=== PATIENT | male | born 1945 | race Two or more races ===

== ENCOUNTER 2019-08-20 05:10 | Day surgery (SDC) | payer OTHER ==
[2019-08-01 13:51] VITALS: BMI 27.9
[2019-08-20] MEDS ORDERED: FLU VACCINE QUAD 60 MCG/0.5 ML (MDV 19-20) IM ONE ×2 (07:04)
[2019-08-20] MEDS ORDERED: methylPREDNISolone ACET (DEPO) 40 MG/1 ML VIAL ONE (07:16)
[2019-08-20] MEDS ORDERED: BACITRACIN 15 GM TUBE TOPICAL OINTMENT ONE (07:17)
[2019-08-20] MEDS ORDERED: THROMBIN (BOVINE) 5,000 UNIT VIAL TP ONE ×3 (07:18→09:14)
[2019-08-20] MEDS ORDERED: MIDAZOLAM HCL 2 MG/2 ML SINGLE DOSE VIAL ONE (08:13)
[2019-08-20] MEDS ORDERED: PROPOFOL 20 ML ONE (08:16)
[2019-08-20] MEDS ORDERED: fentaNYL CITRATE 250 MCG/5 ML VIAL ONE (08:16)
[2019-08-20] MEDS ORDERED: ROCURONIUM BROMIDE 50 MG/5 ML SYRINGE ONE ×2 (08:16→08:53)
[2019-08-20] MEDS ORDERED: ceFAZolin SODIUM 1 GM VIAL IVPB ONE (08:30)
[2019-08-20] MEDS ORDERED: ePHEDrine SULFATE 50 MG/1 ML AMPULE ONE (08:41)
[2019-08-20] MEDS ORDERED: EPHEDRINE SULFATE/0.9% NACL/PF 50 MG/10 ML SYRINGE NR ONE (08:41)
[2019-08-20] MEDS ORDERED: BACITRACIN 50,000 UNITS VIAL TP ONE (09:07)
[2019-08-20] MEDS ORDERED: BUPIVACAINE HCL/PF 0.5% (5 MG/ML) 30 ML VIAL IJ ONE (09:44)
[2019-08-20] MEDS ORDERED: oxyCODONE HCL 5 MG TABLET PO PRN (10:06)
[2019-08-20] MEDS ORDERED: ONDANSETRON 4 MG/2 ML VIAL IVPUSH PRN ×2 (10:06→10:49)
--- NOTE | 2019-08-20 10:06 | OP ---
Operative Note - Note: Operative Date: 08/20/19 Pre-Operative Diagnosis: R L3-4 extruded HNP, stenosis, radiculopathy Operation: Partial R L3 and L4 laminectomies, microdiscectomy, foramenotomy, autologous bone graft harvest and postero-lateral bone fusion R L3-4 Findings: R L3-4 extruded disc; L3-4 spondylolisthesis Implants: none Post-Operative Diagnosis: Same as Pre-op Surgeon: Abbe Austin Assembler: Jt Baker Anesthesiologist/HEART COORDINATOR: Nela Erickson MD Anesthesia: General Specimens Removed: R L3-4 extruded HNP Estimated Blood Loss (mls): 25 Operative Report Dictated: Yes
[2019-08-20] MEDS ORDERED: GLYCOPYRROLATE 0.2 MG/1 ML VIAL ONE (10:09)
[2019-08-20] MEDS ORDERED: NEOSTIGMINE METHYLSULFATE 0.5 MG/1 ML - 10 ML MDV ONE (10:09)
[2019-08-20] MEDS ORDERED: DEXAMETHASONE SOD PHOSPHATE 4 MG/1 ML VIAL ONE (10:09)
[2019-08-20] MEDS ORDERED: LIDOCAINE HCL/PF 2% SDV 5ML VIAL ONE (10:09)
--- NOTE | 2019-08-20 10:52 | SURG ---
Surgery [employer] Note [employer]: Jt Baker PA-C Date of Service: 08/20/19 Diagnosis: R L3-4 extruded HNP, stenosis, radiculopathy Procedure: Partial R L3 and L4 laminectomies, microdiscectomy, foramenotomy, autologous bone graft harvest and postero-lateral bone fusion R L3-4 I was present for the entirety of the operative procedure. For further detail, please refer to operative report. Visit type - Case Type Case Type: Scheduled - New patient This patient is new to me today: Yes Date on this admission: 08/20/19
--- NOTE | 2019-08-20 11:00 | PN ---
Progress Note (short form) - Note Progress Note: NEUROSURGERY In PACU Minimal incisional pain AF, VSS; O2 sat 97% Resting comfortably CV- RR; Lungs- CTA B; Abd-benign; Ext- no sign of DVT CN-intact; Motor- 4+-5 B LE IP/quad/TA/gastroc; Sensation- intact LT Dressing intact Stable neurologically Pain meds Floor care PT in AM Adv diet as tolerated Findings, pt condition and postop care d/w family
[2019-08-20] MEDS: diazePAM 5 MG TABLET PO SCH ×3 (15:00→21:24)
[2019-08-20] MEDS ORDERED: diazePAM 5 MG TABLET ONE (16:09)
[2019-08-20] MEDS: DOCUSATE SODIUM 100 MG CAPSULE (FP) PO SCH ×2 (18:21→21:24)
[2019-08-20] MEDS: D5-1/2NS+20 MEQ KCL - 20 MEQ/1,000 ML INFUS.BAG IV SCH (18:21)
[2019-08-20] MEDS: LACTATED RINGERS SOLUTION 1,000 ML IV SCH (18:21)
[2019-08-20] MEDS ORDERED: ceFAZolin SODIUM 1 GM VIAL ONE (18:45)
[2019-08-20] MEDS ORDERED: DEXTROSE 5%-WATER - 50 ML IVPB ONE (18:45)
[2019-08-20] MEDS: CEFAZOLIN 1 GM in DEXTROSE 5%-WATER - 50 ML IVPB SCH (18:52)
[2019-08-21] MEDS ORDERED: DEXTROSE 5%-WATER - 50 ML IVPB ONE (00:34)
[2019-08-21] MEDS ORDERED: ceFAZolin SODIUM 1 GM VIAL ONE (00:34)
[2019-08-21] MEDS: CEFAZOLIN 1 GM in DEXTROSE 5%-WATER - 50 ML IVPB SCH (01:14)
[2019-08-21] MEDS: diazePAM 5 MG TABLET PO SCH ×2 (05:46→14:25)
[2019-08-21] MEDS: DOCUSATE SODIUM 100 MG CAPSULE (FP) PO SCH ×2 (05:46→14:25)
--- NOTE | 2019-08-21 09:40 | OP ---
DATE OF OPERATION: 08/20/2019 PREOPERATIVE DIAGNOSES: 1. Right L3-4 extruded disk herniation with downwardly migrating disk fragment with secondary spinal stenosis. 2. L3-4 retrolisthesis. 3. Hypertension/coronary artery disease. POSTOPERATIVE DIAGNOSES: 1. Right L3-4 extruded disk herniation with downwardly migrating disk fragment with secondary spinal stenosis. 2. L3-4 retrolisthesis. 3. Hypertension/coronary artery disease. ATTENDING SURGEON: Abbe Austin MD [employer]PL[employer] ATTENDANT: VIVI Raymond ANESTHESIA: General endotracheal. ANESTHESIOLOGIST: ODILON Leggett ESTIMATED BLOOD LOSS: 25 mL. PROCEDURE: 1. Partial right L3 and L4 laminectomy including medial facetectomy and foraminotomy for decompression of the thecal sac and the right L3 and L4 nerve roots including microdiskectomy (09681, [id number]). 2. Microsurgical dissection with operating microscope and microsurgical technique (77377). 3. [place] of autologous laminar bone (28306). 4. Posterolateral fusion, L3-4, with autologous bone graft (42994). FINDINGS: 1. L3-4 retrolisthesis on the intraoperative x-rays. 2. Extruded disk herniation, right L3-4, with epidural fibrosis. INDICATION: Patient is a 74-year-old male with intractable lower back pain and right lower extremity radiculopathy. MRI showed a right L3-4 extruded disk herniation with thecal sac and nerve root impingement. Because of the intractable symptoms and failure of conservative treatment he was consented for a right-sided L3-4 decompression and possible bone graft. Risks of the procedure include but are not limited to bleeding, infection, dural tear with CSF leak, neurological injury, increased thromboembolic risk and other risks of general anesthesia. The patient understands the indication for the procedure, the procedure in detail, risks and benefits and alternatives for the treatment of his lumbar condition and wished to proceed with surgery. No guarantee was given for a favorable outcome. PROCEDURE IN DETAIL: After the patient was taken to the operating room he was placed in the supine position. After general anesthesia was induced and appropriate lines were placed, he was turned into the prone position on a Harshad frame. All pressure points were checked and padded. Lumbar region cleaned with alcohol and prepped with Betadine. Localizing x-ray was obtained with spinal needle in the intraspinal space at L3-4. After position was verified the patient was sterilely prepped and draped. A 1-1/2-inch incision was opened in the midline over the L3-4. Subperiosteal dissection was carried out with a periosteal elevator and monopolar electrocautery. A self-retaining retractor was inserted. Another localizing x-ray was then obtained with a probe in the L3-4 interlaminar space. After position was verified partial laminectomy, right L3 to side of L3 and L4 was carried out with a high-speed pneumatic drill, angled curet an Kerrison rongeur. A somewhat thickened ligamentum flavum was encountered and was dissected free with an angled curet and resected with a Kerrison rongeur. There was moderate lateral recess stenosis which was taken down with a high-speed pneumatic drill and Kerrison rongeur as well. The thecal sac was noted as well as right L4 nerve root and the L3 nerve roots. The disk bulge was noted at the L3-4 level and a localizing x-ray did demonstrate a retrolisthesis at L3-4. There was no disk fragment above the nerve root shoulder and then attention turned to the axilla where the variable small pieces of disk fragment were freed up with a blunt nerve hook and dental tool. There was no one large disk fragment, however. A moderate degree of epidural fibrosis was noted and hemostasis was obtained with bipolar electrocautery. The disk fragments were bulb suctioned and then part of it was sent for pathological analysis. The decompression was completed towards the neural foramen on the right side at L3-4. The spinal canal was also decompressed. The wound was irrigated with antibiotic irrigation. A Valsalva maneuver was performed and there was no CSF leak. The proximal transverse process of L3 and L4 was decorticated with a high-speed pneumatic drill and packed with autologous morcellized bone graft which was harvested during the laminectomy process on the right side. Ten mL of 0.25% Marcaine were injected in the paraspinous muscle on the right side only. Another round of irrigation was given and 2 layers of Surgicel were laid in the epidural space at the L3-4 level. Dorsal lumbar fascia was closed with 0 Vicryl suture. Subcutaneous fascia was closed with 3-0 Vicryl suture. Skin was closed with 4-0 Vicryl running subcuticular suture. Steri-Strips and a sterile occlusive dressing were applied. The patient tolerated the procedure well and was turned back supine and extubated. He was moving bilateral upper and lower extremities in the recovery room. All needle and lap counts were correct. The patient received 1 dose of 2 g of Ancef prior to the incision. OR timeout procedure was followed. The patient's family was updated as to the patient's postoperative condition as well as intraoperative findings. Blaise [id number] MTDD
[2019-08-21] MEDS ORDERED: metoPROLOL SUCCINATE 25 MG TAB.SR.24H (FP) PO SCH (10:00)
[2019-08-21] MEDS ORDERED: amLODIPine BESYLATE 5 MG TABLET (FP) PO SCH (10:00)
[2019-08-21] MEDS ORDERED: LOSARTAN POTASSIUM 50 MG TABLET (FP) PO SCH (10:00)
[2019-08-21] MEDS ORDERED: PANTOPRAZOLE 40 MG TABLET PO SCH (10:00)
[2019-08-21] MEDS ORDERED: FENOFIBRIC ACID 135 MG CAP PO SCH (10:00)
[2019-08-21 12:51] VITALS: BP 141/70; PULSE 97; TEMP 97.9
--- NOTE | 2019-08-21 13:29 | PN ---
Progress Note (short form) - Note Progress Note: Anesthesia postop note 74 y/o M s/p GA for lumbar laminectomy POD#1, vss, aaox3, no complaints. No anesthesia complications.
[2019-08-21] MEDS: LACTATED RINGERS SOLUTION 1,000 ML IV SCH (13:47)
[2019-08-21] MEDS: D5-1/2NS+20 MEQ KCL - 20 MEQ/1,000 ML INFUS.BAG IV SCH (13:47)
--- NOTE | 2019-08-21 13:57 | PN ---
Progress Note (short form) - Note Progress Note: NEUROSURGERY On 8W Incisional pain Minimal R sciatica at bedside Tmax 98.3, AF, VSS CV- RR; Lungs- CTA B; Abd-benign; Ext- no sign of DVT CN-intact; Motor- 5 B LE IP/quad/TA/gastroc except R IP 4+; Sensation- intact LT Dressing with old drainage- dry right now Stable neurologically Pain meds PT input noted Adv diet as tolerated Findings and postop care d/w family Instructions given
--- NOTE | 2019-08-21 16:31 | PATH ---
Surgical Pathology Report Patient Name: VINCENZO CATALAN [facility]. Rec. #: [id number] /Age/Gender: 1945 (Age: 74) / M Account: <[id number]> Location: U Taken: 08/20/2019 Received: 08/20/2019 Reported: 08/21/2019 Physicians: Abbe Austin M.D. Specimen(s) Received RIGHT L3-4 Clinical History Intervertebral disc disorder with radiculopathy Final Diagnosis DISC, L3-4, RIGHT, LUMBAR LAMINECTOMY, DISCECTOMY: BENIGN INTERVERTEBRAL DISC TISSUE. Electronically Signed Enedina Medrano M.D. Gross Description Received in formalin labeled "right L3-4 disc," is a 1.4 x 0.7 x 0.2 cm aggregate of hanson fragments of fibrocartilaginous tissue. The specimen is entirely submitted in one cassette. DL/08/20/2019 saudi/08/20/2019
[2019-08-21] MEDS ORDERED: ATORVASTATIN CA 10 MG TABLET (FP) PO SCH (22:00)
== END 2019-08-21 15:15 | disposition home health service (06) ==
LOC: JSAMEDAYSX 05:10 → UNDOADMIN 05:10 → JASUSAT 05:10 → EDSTATUS 08:00 → J8W 17:53 → JASUSAT 08-21 15:15
PROVIDERS: ATTEND Neurological Surgery
PROC: 01NB0ZZ Release Lumbar Nerve, Open Approach (ICD-10-PCS; principal; 2019-08-20 08:00)
DX: M51.16 Intervertebral disc disorders with radiculopathy, lumbar region (principal); M48.061 Spinal stenosis, lumbar region without neurogenic claudication
CPT/HCPCS: 72100-TC-FY; 86850; 86900; 86901; 86922; 94010; 94760; 97116-GP; 97161-GP

== ENCOUNTER 2020-09-24 04:30 | Day surgery (SDC) | payer OTHER ==
[2020-09-21 15:15] VITALS: BMI 29.5
[2020-09-24] MEDS ORDERED: LIDOCAINE HCL 1% PRESERVATIVE FREE - 30ML VIAL PNB ONE (09:58)
[2020-09-24] MEDS ORDERED: IOHEXOL 180 MG/1 ML ML IJ ONE (09:58)
[2020-09-24 10:46] VITALS: BP 170/75; PULSE 72; TEMP 98.7
== END 2020-09-24 10:40 | disposition home or self-care (01) ==
LOC: JASU-SURG 04:30
PROVIDERS: ATTEND Pain Medicine Pain Medicine
PROC: 3E0R33Z Introduction of Anti-inflammatory into Spinal Canal, Percutaneous Approach (ICD-10-PCS; 2020-09-24)
PROC: B01BYZZ Fluoroscopy of Spinal Cord using Other Contrast (ICD-10-PCS; 2020-09-24)
PROC: 3E0R3BZ Introduction of Anesthetic Agent into Spinal Canal, Percutaneous Approach (ICD-10-PCS; principal; 2020-09-24 09:30)
DX: M54.16 Radiculopathy, lumbar region (principal)
CPT/HCPCS: 76000-TC-FY

== ENCOUNTER 2020-11-05 04:27 | Day surgery (SDC) | payer OTHER ==
[2020-11-04 17:34] VITALS: BMI 28.7
[2020-11-05] MEDS ORDERED: DEXAMETHASONE SOD PHOSPHATE/PF 10 MG/ML SDV ONE (07:23)
[2020-11-05] MEDS ORDERED: LIDOCAINE HCL/PF 1% SDV 5ML VIAL ONE (07:27)
[2020-11-05 11:36] VITALS: BP 143/70; PULSE 64; TEMP 98.2
== END 2020-11-05 11:30 | disposition home or self-care (01) ==
LOC: JASU-SURG 04:27
PROVIDERS: ATTEND Pain Medicine Pain Medicine
PROC: 3E0R3BZ Introduction of Anesthetic Agent into Spinal Canal, Percutaneous Approach (ICD-10-PCS; 2020-11-05)
PROC: B01BYZZ Fluoroscopy of Spinal Cord using Other Contrast (ICD-10-PCS; 2020-11-05)
PROC: 3E0R33Z Introduction of Anti-inflammatory into Spinal Canal, Percutaneous Approach (ICD-10-PCS; principal; 2020-11-05 10:48)
DX: M54.16 Radiculopathy, lumbar region (principal); M48.061 Spinal stenosis, lumbar region without neurogenic claudication
CPT/HCPCS: 76000-TC-FY

== ENCOUNTER 2020-12-03 04:46 | Day surgery (SDC) | payer OTHER ==
[2020-11-30 09:22] VITALS: BMI 30.4
[2020-12-03] MEDS ORDERED: LIDOCAINE HCL/PF 1% SDV 5ML VIAL ONE (07:17)
[2020-12-03] MEDS ORDERED: BUPIVACAINE HCL/PF 0.75% 10 ML VIAL ONE (07:18)
[2020-12-03] MEDS ORDERED: BUPIVACAINE HCL/PF 0.75% 10 ML VIAL NR ONE ×2 (08:53)
[2020-12-03] MEDS ORDERED: LIDOCAINE HCL 1% PRESERVATIVE FREE - 30ML VIAL IJ ONE ×2 (08:53)
[2020-12-03 09:25] VITALS: PULSE 66
[2020-12-03 09:29] VITALS: BP 152/70; TEMP 97.8
== END 2020-12-03 09:25 | disposition home or self-care (01) ==
LOC: JASU-SURG 04:46
PROVIDERS: ATTEND Pain Medicine Pain Medicine
PROC: BR16YZZ Fluoroscopy of Lumbar Facet Joint(s) using Other Contrast (ICD-10-PCS; 2020-12-03)
PROC: 3E0T3BZ Introduction of Anesthetic Agent into Peripheral Nerves and Plexi, Percutaneous Approach (ICD-10-PCS; principal; 2020-12-03 08:30)
DX: M47.816 Spondylosis without myelopathy or radiculopathy, lumbar region (principal)
CPT/HCPCS: 76000-TC-FY

== ENCOUNTER 2020-12-23 04:56 | Day surgery (SDC) | payer OTHER ==
[2020-12-22 14:45] VITALS: BMI 27.9
[2020-12-23] MEDS ORDERED: LIDOCAINE HCL/PF 1% SDV 5ML VIAL ONE (07:08)
[2020-12-23] MEDS ORDERED: BUPIVACAINE HCL/PF 0.75% 10 ML VIAL ONE (07:09)
[2020-12-23] MEDS ORDERED: IOHEXOL 180 MG/1 ML ML IJ ONE (08:27)
[2020-12-23] MEDS ORDERED: LIDOCAINE HCL 1% PRESERVATIVE FREE - 30ML VIAL IJ ONE (08:28)
[2020-12-23] MEDS ORDERED: BUPIVACAINE HCL/PF 0.75% 10 ML VIAL NR ONE (08:29)
[2020-12-23] MEDS ORDERED: BUPIVACAINE 0.75% IN DEXTROSE/PF 2ML AMPULE NR ONE (08:29)
[2020-12-23 09:55] VITALS: BP 170/80; PULSE 67; TEMP 97.3
== END 2020-12-23 09:25 | disposition home or self-care (01) ==
LOC: JASU-SURG 04:56
PROVIDERS: ATTEND Pain Medicine Pain Medicine
PROC: BR16YZZ Fluoroscopy of Lumbar Facet Joint(s) using Other Contrast (ICD-10-PCS; 2020-12-23)
PROC: 3E0T3BZ Introduction of Anesthetic Agent into Peripheral Nerves and Plexi, Percutaneous Approach (ICD-10-PCS; principal; 2020-12-23 08:00)
DX: M47.816 Spondylosis without myelopathy or radiculopathy, lumbar region (principal)
CPT/HCPCS: 76000-TC-FY

== ENCOUNTER 2021-08-04 13:43 | Inpatient (IN) | payer OTHER ==
[2021-08-04] MEDS ORDERED: REMDESIVIR 200 MG in SODIUM CHLORIDE 250 ML IVPB ONE (14:14)
[2021-08-04 15:27] LABS: VENOUS BASE EXCESS -1.9 mmol/L (-2-2); VENOUS O2 SATURATION 91.1 % (70-80); VENOUS PCO2 32.4 mmHg (38-52); VENOUS PH 7.438 (7.310-7.410)
[2021-08-04 15:38] LABS: BASO % 0.2 % (0-2.0); HEMATOCRIT 37.7 % (35.4-49); HEMOGLOBIN 12.4 GM/dL (11.7-16.9); LYMPH % 9.9 % (8-40); MCH 28.6 pg (25.7-33.7); MCHC 32.7 g/dl (32.0-35.9); MEAN CELL VOLUME 87.4 fl (80-96); MEAN PLT VOLUME 8.7 fl (7.5-11.1); MONO % 4.9 % (3.8-10.2); PLATELET COUNT 214 10^3/uL (134-434); RBC 4.32 M/mm3 (4.00-5.60); RDW 14.7 % (11.9-15.9); WHITE BLOOD COUNT 7.3 K/mm3 (4.0-10.0)
[2021-08-04 15:46] LABS: INR 1.12 (0.83-1.09); PROTHROMBIN TIME (PATIENT) 12.9 SEC (9.7-13.0)
[2021-08-04 15:48] LABS: CALCIUM 8.4 mg/dL (8.5-10.1); CHLORIDE 106 mmol/L (98-107); SODIUM 138 mmol/L (136-145)
[2021-08-04 15:49] LABS: ACTIVATED PTT 21.7 SECONDS (25.2-36.5); ALBUMIN 2.9 g/dl (3.4-5.0); ANION GAP 12 MMOL/L (8-16); BLOOD UREA NITROGEN 14.5 mg/dL (7-18); CO2 20 mmol/L (21-32); GLUCOSE,RANDOM 108 mg/dL (74-106)
[2021-08-04 15:50] LABS: EPI CELLS 11 /uL (0-25.1); HYALINE CASTS 3 /uL (0-3.1); PH,URINE 5.5 (5.0-8.0); URINE APPEARANCE CLEAR; URINE BACTERIA 2 /uL (0-1359); URINE BILIRUBIN 1+ (NEGATIVE); URINE COLOR DK YELLOW; URINE GLUCOSE (UA) NEGATIVE (NEGATIVE); URINE KETONE 1+ (NEGATIVE); URINE LEUK ESTERASE NEGATIVE (NEGATIVE); URINE NITRITE NEGATIVE (NEGATIVE); URINE PROTEIN 2+ (NEGATIVE); URINE RBC 19 /uL (0-23.9); URINE WBC 11 /uL (0-25.8)
[2021-08-04 15:52] LABS: BILIRUBIN,DIRECT 0.3 mg/dL (0.0-0.2); CREATININE 1.1 mg/dL (0.55-1.3); SGOT/AST 42 U/L (15-37); SGPT/ALT 18 U/L (13-61)
[2021-08-04 15:53] LABS: BILIRUBIN,TOTAL 0.5 mg/dL (0.2-1); LDH 389 U/L (87-246); TOT PROT 6.4 g/dl (6.4-8.2)
[2021-08-04 15:55] LABS: ALK PHOS 47 U/L (45-117)
[2021-08-04] MEDS ORDERED: AZITHROMYCIN IVPB 500 MG in DEXTROSE 5%-WATER - 250 ML IVPB ONE (23:37)
[2021-08-05] MEDS ORDERED: cefTRIAXone SODIUM 1 GM VIAL ONE ×2 (00:55→09:45)
[2021-08-05] MEDS ORDERED: DEXTROSE 5%-WATER - 50 ML IVPB ONE ×2 (00:55→09:45)
[2021-08-05] MEDS: CEFTRIAXONE 1 GM in DEXTROSE 5%-WATER - 50 ML IVPB SCH ×2 (00:58→10:09)
[2021-08-05 01:50] VITALS: BMI 26.4
[2021-08-05] MEDS: metoPROLOL SUCCINATE 25 MG TAB.SR.24H (FP) PO SCH (10:08)
[2021-08-05] MEDS: ZINC SULFATE 220 MG CAPSULE (FP) PO SCH (10:08)
[2021-08-05] MEDS: ASPIRIN 81 MG CHEWABLE TABLETS PO SCH (10:08)
[2021-08-05] MEDS: ASCORBIC ACID 500 MG TABLET (FP) PO SCH ×2 (10:08→21:23)
[2021-08-05] MEDS: PANTOPRAZOLE 40 MG TABLET PO SCH (10:08)
[2021-08-05] MEDS: amLODIPine BESYLATE 5 MG TABLET (FP) PO SCH (10:08)
[2021-08-05] MEDS: ENOXAPARIN NA (PORCINE) 40 MG/0.4 ML DISP.SYRIN SQ SCH (10:08)
[2021-08-05] MEDS: LOSARTAN POTASSIUM 50 MG TABLET PO SCH (10:08)
[2021-08-05] MEDS: DEXAMETHASONE SOD PHOSPHATE 10 MG/1 ML VIAL IVPUSH SCH ×2 (10:15→10:17)
[2021-08-05] MEDS: DEXAMETHASONE SOD PHOSPHATE 4 MG/1 ML VIAL IVPUSH SCH (10:21)
[2021-08-05 11:12] LABS: BASO % 0.2 % (0-2.0); HEMATOCRIT 36.6 % (35.4-49); HEMOGLOBIN 12.2 GM/dL (11.7-16.9); LYMPH % 13.9 % (8-40); MCHC 33.3 g/dl (32.0-35.9); MEAN CELL VOLUME 87.1 fl (80-96); MEAN PLT VOLUME 8.7 fl (7.5-11.1); MONO % 9.4 % (3.8-10.2); NEUT % 76.5 % (42.8-82.8); PLATELET COUNT 220 10^3/uL (134-434); RBC 4.21 M/mm3 (4.00-5.60); RDW 14.3 % (11.9-15.9); WHITE BLOOD COUNT 7.1 K/mm3 (4.0-10.0)
[2021-08-05 11:46] LABS: ALBUMIN 2.7 g/dl (3.4-5.0); BLOOD UREA NITROGEN 18.5 mg/dL (7-18); CALCIUM 8.7 mg/dL (8.5-10.1)
[2021-08-05 11:50] LABS: BILIRUBIN,TOTAL 0.5 mg/dL (0.2-1)
[2021-08-05 11:51] LABS: TOT PROT 6.3 g/dl (6.4-8.2)
[2021-08-05] MEDS: CHOLECALCIFEROL (VIT D3) 5000 UNITS (125 MCG) CAP PO SCH (16:08)
[2021-08-05] MEDS: ALBUTEROL SO4 HFA INHALER IH SCH ×2 (16:08→21:23)
[2021-08-05] MEDS: TIOTROPIUM BROMIDE 2.5 MCG (SPIRIVA) RESPIMAT INHALER IH SCH (16:08)
[2021-08-05] MEDS ORDERED: AZITHROMYCIN IVPB 250 MG in DEXTROSE 5%-WATER - 250 ML IVPB SCH (18:00)
[2021-08-05] MEDS: BUDESONIDE/FORMETEROL FUMARATE 160/4.5 mcg INHALER IH SCH (21:23)
[2021-08-06] MEDS: ALBUTEROL SO4 HFA INHALER IH SCH ×4 (08:00→22:23)
[2021-08-06 11:04] LABS: BASO % 0.1 % (0-2.0); HEMATOCRIT 35.3 % (35.4-49); HEMOGLOBIN 11.8 GM/dL (11.7-16.9); LYMPH % 7.7 % (8-40); MCH 28.7 pg (25.7-33.7); MCHC 33.3 g/dl (32.0-35.9); MEAN PLT VOLUME 9.2 fl (7.5-11.1); MONO % 3.4 % (3.8-10.2); NEUT % 88.8 % (42.8-82.8); PLATELET COUNT 258 10^3/uL (134-434); RDW 14.2 % (11.9-15.9); WHITE BLOOD COUNT 12.5 K/mm3 (4.0-10.0)
[2021-08-06] MEDS ORDERED: DEXTROSE 5%-WATER - 50 ML IVPB ONE (11:12)
[2021-08-06] MEDS ORDERED: cefTRIAXone SODIUM 1 GM VIAL ONE (11:12)
[2021-08-06] MEDS: CEFTRIAXONE 1 GM in DEXTROSE 5%-WATER - 50 ML IVPB SCH (11:18)
[2021-08-06] MEDS: ENOXAPARIN NA (PORCINE) 40 MG/0.4 ML DISP.SYRIN SQ SCH (11:19)
[2021-08-06] MEDS: ASCORBIC ACID 500 MG TABLET (FP) PO SCH ×2 (11:19→22:23)
[2021-08-06] MEDS: ZINC SULFATE 220 MG CAPSULE (FP) PO SCH (11:19)
[2021-08-06] MEDS: amLODIPine BESYLATE 5 MG TABLET (FP) PO SCH (11:19)
[2021-08-06] MEDS: DEXAMETHASONE SOD PHOSPHATE 4 MG/1 ML VIAL IVPUSH SCH (11:19)
[2021-08-06] MEDS: metoPROLOL SUCCINATE 25 MG TAB.SR.24H (FP) PO SCH (11:19)
[2021-08-06] MEDS: PANTOPRAZOLE 40 MG TABLET PO SCH (11:19)
[2021-08-06] MEDS: ASPIRIN 81 MG CHEWABLE TABLETS PO SCH (11:19)
[2021-08-06] MEDS: BUDESONIDE/FORMETEROL FUMARATE 160/4.5 mcg INHALER IH SCH ×2 (11:21→22:23)
[2021-08-06] MEDS: TIOTROPIUM BROMIDE 2.5 MCG (SPIRIVA) RESPIMAT INHALER IH SCH (11:21)
[2021-08-06] MEDS: LOSARTAN POTASSIUM 50 MG TABLET PO SCH (11:24)
[2021-08-06] MEDS: CHOLECALCIFEROL (VIT D3) 5000 UNITS (125 MCG) CAP PO SCH (11:25)
[2021-08-06 11:33] LABS: CALCIUM 8.5 mg/dL (8.5-10.1)
[2021-08-06 11:34] LABS: ALBUMIN 2.6 g/dl (3.4-5.0); BLOOD UREA NITROGEN 24.7 mg/dL (7-18)
[2021-08-06 11:38] LABS: BILIRUBIN,TOTAL 0.3 mg/dL (0.2-1)
[2021-08-06] MEDS: POLYETHYLENE GLYCOL (HEALTHYLAX) 3350 17 GM PACKET PO SCH (18:13)
[2021-08-07] MEDS: ALBUTEROL SO4 HFA INHALER IH SCH ×4 (08:10→21:13)
[2021-08-07 10:09] LABS: HEMATOCRIT 35.5 % (35.4-49); HEMOGLOBIN 11.7 GM/dL (11.7-16.9); LYMPH % 8.2 % (8-40); MCH 28.4 pg (25.7-33.7); MCHC 32.8 g/dl (32.0-35.9); MEAN CELL VOLUME 86.6 fl (80-96); MEAN PLT VOLUME 8.9 fl (7.5-11.1); MONO % 3.6 % (3.8-10.2); NEUT % 88.2 % (42.8-82.8); PLATELET COUNT 294 10^3/uL (134-434); RDW 14.7 % (11.9-15.9); WHITE BLOOD COUNT 14.4 K/mm3 (4.0-10.0)
[2021-08-07] MEDS ORDERED: cefTRIAXone SODIUM 1 GM VIAL ONE (10:12)
[2021-08-07] MEDS ORDERED: DEXTROSE 5%-WATER - 50 ML IVPB ONE (10:12)
[2021-08-07 10:29] LABS: ALBUMIN 2.5 g/dl (3.4-5.0); BLOOD UREA NITROGEN 23.5 mg/dL (7-18); CALCIUM 8.9 mg/dL (8.5-10.1)
[2021-08-07 10:30] LABS: TOT PROT 5.9 g/dl (6.4-8.2)
[2021-08-07 10:32] LABS: BILIRUBIN,TOTAL 0.3 mg/dL (0.2-1)
[2021-08-07] MEDS: ASCORBIC ACID 500 MG TABLET (FP) PO SCH ×2 (10:35→21:13)
[2021-08-07] MEDS: ASPIRIN 81 MG CHEWABLE TABLETS PO SCH (10:35)
[2021-08-07] MEDS: POLYETHYLENE GLYCOL (HEALTHYLAX) 3350 17 GM PACKET PO SCH (10:36)
[2021-08-07] MEDS: PANTOPRAZOLE 40 MG TABLET PO SCH (10:36)
[2021-08-07] MEDS: ZINC SULFATE 220 MG CAPSULE (FP) PO SCH (10:36)
[2021-08-07] MEDS: metoPROLOL SUCCINATE 25 MG TAB.SR.24H (FP) PO SCH (10:36)
[2021-08-07] MEDS: amLODIPine BESYLATE 5 MG TABLET (FP) PO SCH (10:36)
[2021-08-07] MEDS: LOSARTAN POTASSIUM 50 MG TABLET PO SCH (10:36)
[2021-08-07] MEDS: CHOLECALCIFEROL (VIT D3) 5000 UNITS (125 MCG) CAP PO SCH (10:37)
[2021-08-07] MEDS: CEFTRIAXONE 1 GM in DEXTROSE 5%-WATER - 50 ML IVPB SCH (10:37)
[2021-08-07] MEDS: TIOTROPIUM BROMIDE 2.5 MCG (SPIRIVA) RESPIMAT INHALER IH SCH (10:38)
[2021-08-07] MEDS: BUDESONIDE/FORMETEROL FUMARATE 160/4.5 mcg INHALER IH SCH ×2 (10:38→21:13)
[2021-08-07] MEDS: DEXAMETHASONE SOD PHOSPHATE 4 MG/1 ML VIAL IVPUSH SCH (10:39)
[2021-08-07] MEDS: ENOXAPARIN NA (PORCINE) 40 MG/0.4 ML DISP.SYRIN SQ SCH (10:40)
[2021-08-08] MEDS ORDERED: cefTRIAXone SODIUM 1 GM VIAL ONE (11:34)
[2021-08-08] MEDS ORDERED: DEXTROSE 5%-WATER - 50 ML IVPB ONE (11:34)
[2021-08-08] MEDS: LOSARTAN POTASSIUM 50 MG TABLET PO SCH (11:42)
[2021-08-08] MEDS: ALBUTEROL SO4 HFA INHALER IH SCH ×4 (11:42→21:16)
[2021-08-08] MEDS: amLODIPine BESYLATE 5 MG TABLET (FP) PO SCH (11:42)
[2021-08-08] MEDS: ASCORBIC ACID 500 MG TABLET (FP) PO SCH ×2 (11:42→21:16)
[2021-08-08] MEDS: ZINC SULFATE 220 MG CAPSULE (FP) PO SCH (11:42)
[2021-08-08] MEDS: TIOTROPIUM BROMIDE 2.5 MCG (SPIRIVA) RESPIMAT INHALER IH SCH (11:43)
[2021-08-08] MEDS: POLYETHYLENE GLYCOL (HEALTHYLAX) 3350 17 GM PACKET PO SCH (11:43)
[2021-08-08] MEDS: metoPROLOL SUCCINATE 25 MG TAB.SR.24H (FP) PO SCH (11:43)
[2021-08-08] MEDS: PANTOPRAZOLE 40 MG TABLET PO SCH (11:43)
[2021-08-08] MEDS: ASPIRIN 81 MG CHEWABLE TABLETS PO SCH (11:43)
[2021-08-08] MEDS: DEXAMETHASONE SOD PHOSPHATE 4 MG/1 ML VIAL IVPUSH SCH (11:43)
[2021-08-08] MEDS: CEFTRIAXONE 1 GM in DEXTROSE 5%-WATER - 50 ML IVPB SCH (11:44)
[2021-08-08] MEDS: BUDESONIDE/FORMETEROL FUMARATE 160/4.5 mcg INHALER IH SCH ×2 (11:44→21:16)
[2021-08-08] MEDS: ENOXAPARIN NA (PORCINE) 40 MG/0.4 ML DISP.SYRIN SQ SCH (13:23)
[2021-08-08] MEDS: CHOLECALCIFEROL (VIT D3) 5000 UNITS (125 MCG) CAP PO SCH (13:23)
[2021-08-08] MEDS: APIXABAN 5 MG TABLET PO SCH (21:16)
[2021-08-09] MEDS ORDERED: cefTRIAXone SODIUM 1 GM VIAL ONE (09:16)
[2021-08-09] MEDS ORDERED: DEXTROSE 5%-WATER - 50 ML IVPB ONE (09:16)
[2021-08-09] MEDS: DEXAMETHASONE SOD PHOSPHATE 4 MG/1 ML VIAL IVPUSH SCH (09:27)
[2021-08-09] MEDS: ALBUTEROL SO4 HFA INHALER IH SCH ×4 (09:29→21:51)
[2021-08-09] MEDS: amLODIPine BESYLATE 5 MG TABLET (FP) PO SCH (09:30)
[2021-08-09] MEDS: APIXABAN 5 MG TABLET PO SCH ×2 (09:30→21:51)
[2021-08-09] MEDS: metoPROLOL SUCCINATE 25 MG TAB.SR.24H (FP) PO SCH (09:30)
[2021-08-09] MEDS: CEFTRIAXONE 1 GM in DEXTROSE 5%-WATER - 50 ML IVPB SCH (09:30)
[2021-08-09] MEDS: ASPIRIN 81 MG CHEWABLE TABLETS PO SCH (09:30)
[2021-08-09] MEDS: ASCORBIC ACID 500 MG TABLET (FP) PO SCH ×2 (09:30→21:51)
[2021-08-09] MEDS: LOSARTAN POTASSIUM 50 MG TABLET PO SCH (09:30)
[2021-08-09] MEDS: PANTOPRAZOLE 40 MG TABLET PO SCH (09:30)
[2021-08-09] MEDS: POLYETHYLENE GLYCOL (HEALTHYLAX) 3350 17 GM PACKET PO SCH (09:30)
[2021-08-09] MEDS: BUDESONIDE/FORMETEROL FUMARATE 160/4.5 mcg INHALER IH SCH ×2 (09:31→21:52)
[2021-08-09] MEDS: TIOTROPIUM BROMIDE 2.5 MCG (SPIRIVA) RESPIMAT INHALER IH SCH (09:31)
[2021-08-09 09:33] LABS: BASO % 0.1 % (0-2.0); EOS % 0.1 % (0-4.5); HEMATOCRIT 34.8 % (35.4-49); HEMOGLOBIN 11.4 GM/dL (11.7-16.9); LYMPH % 9.1 % (8-40); MCH 28.3 pg (25.7-33.7); MCHC 32.7 g/dl (32.0-35.9); MEAN CELL VOLUME 86.4 fl (80-96); MEAN PLT VOLUME 8.9 fl (7.5-11.1); MONO % 6.7 % (3.8-10.2); PLATELET COUNT 346 10^3/uL (134-434); RBC 4.02 M/mm3 (4.00-5.60); RDW 14.3 % (11.9-15.9); WHITE BLOOD COUNT 11.5 K/mm3 (4.0-10.0)
[2021-08-09] MEDS: ZINC SULFATE 220 MG CAPSULE (FP) PO SCH (09:34)
[2021-08-09] MEDS: CHOLECALCIFEROL (VIT D3) 5000 UNITS (125 MCG) CAP PO SCH (09:36)
[2021-08-09 10:17] LABS: BLOOD UREA NITROGEN 21.8 mg/dL (7-18)
[2021-08-09 10:18] LABS: ALBUMIN 2.4 g/dl (3.4-5.0)
[2021-08-09 10:21] LABS: CREATININE 0.9 mg/dL (0.55-1.3)
[2021-08-09 10:22] LABS: BILIRUBIN,TOTAL 0.4 mg/dL (0.2-1); TOT PROT 5.6 g/dl (6.4-8.2)
[2021-08-09] MEDS: guaiFENesin 200 MG/10 ML 10 ML UNIT-DOSE CUPS PO PRN (21:52)
[2021-08-10] MEDS: ALBUTEROL SO4 HFA INHALER IH SCH ×4 (09:26→21:01)
[2021-08-10] MEDS ORDERED: DEXTROSE 5%-WATER - 50 ML IVPB ONE (10:33)
[2021-08-10] MEDS ORDERED: cefTRIAXone SODIUM 1 GM VIAL ONE (10:33)
[2021-08-10] MEDS: DEXAMETHASONE SOD PHOSPHATE 4 MG/1 ML VIAL IVPUSH SCH (10:54)
[2021-08-10] MEDS: POLYETHYLENE GLYCOL (HEALTHYLAX) 3350 17 GM PACKET PO SCH (10:54)
[2021-08-10] MEDS: CEFTRIAXONE 1 GM in DEXTROSE 5%-WATER - 50 ML IVPB SCH (10:54)
[2021-08-10] MEDS: guaiFENesin 200 MG/10 ML 10 ML UNIT-DOSE CUPS PO PRN (10:54)
[2021-08-10] MEDS: APIXABAN 5 MG TABLET PO SCH ×2 (10:56→21:01)
[2021-08-10] MEDS: BUDESONIDE/FORMETEROL FUMARATE 160/4.5 mcg INHALER IH SCH ×2 (10:56→21:01)
[2021-08-10] MEDS: ASPIRIN 81 MG CHEWABLE TABLETS PO SCH (10:56)
[2021-08-10] MEDS: LOSARTAN POTASSIUM 50 MG TABLET PO SCH (10:56)
[2021-08-10] MEDS: TIOTROPIUM BROMIDE 2.5 MCG (SPIRIVA) RESPIMAT INHALER IH SCH (10:56)
[2021-08-10] MEDS: metoPROLOL SUCCINATE 25 MG TAB.SR.24H (FP) PO SCH (10:56)
[2021-08-10] MEDS: ZINC SULFATE 220 MG CAPSULE (FP) PO SCH (10:56)
[2021-08-10] MEDS: ASCORBIC ACID 500 MG TABLET (FP) PO SCH ×2 (10:56→21:01)
[2021-08-10] MEDS: amLODIPine BESYLATE 5 MG TABLET (FP) PO SCH (10:56)
[2021-08-10] MEDS: PANTOPRAZOLE 40 MG TABLET PO SCH (10:56)
[2021-08-10] MEDS: CHOLECALCIFEROL (VIT D3) 5000 UNITS (125 MCG) CAP PO SCH (15:26)
[2021-08-11 08:57] LABS: BASO % 0.2 % (0-2.0); HEMATOCRIT 37.1 % (35.4-49); HEMOGLOBIN 12.1 GM/dL (11.7-16.9); LYMPH % 12.1 % (8-40); MCH 28.2 pg (25.7-33.7); MCHC 32.6 g/dl (32.0-35.9); MEAN CELL VOLUME 86.3 fl (80-96); MEAN PLT VOLUME 8.5 fl (7.5-11.1); MONO % 6.2 % (3.8-10.2); NEUT % 80.5 % (42.8-82.8); PLATELET COUNT 524 10^3/uL (134-434); RDW 14.5 % (11.9-15.9); WHITE BLOOD COUNT 12.3 K/mm3 (4.0-10.0)
[2021-08-11 10:03] LABS: ALBUMIN 2.5 g/dl (3.4-5.0); BLOOD UREA NITROGEN 24.4 mg/dL (7-18)
[2021-08-11 10:06] LABS: BILIRUBIN,TOTAL 0.5 mg/dL (0.2-1); CREATININE 0.9 mg/dL (0.55-1.3)
[2021-08-11] MEDS ORDERED: DEXTROSE 5%-WATER - 50 ML IVPB ONE (10:16)
[2021-08-11] MEDS ORDERED: cefTRIAXone SODIUM 1 GM VIAL ONE (10:16)
[2021-08-11] MEDS: ALBUTEROL SO4 HFA INHALER IH SCH ×4 (10:27→21:11)
[2021-08-11] MEDS: CEFTRIAXONE 1 GM in DEXTROSE 5%-WATER - 50 ML IVPB SCH (10:27)
[2021-08-11] MEDS: ZINC SULFATE 220 MG CAPSULE (FP) PO SCH (10:28)
[2021-08-11] MEDS: amLODIPine BESYLATE 5 MG TABLET (FP) PO SCH (10:28)
[2021-08-11] MEDS: ASCORBIC ACID 500 MG TABLET (FP) PO SCH ×2 (10:28→21:11)
[2021-08-11] MEDS: ASPIRIN 81 MG CHEWABLE TABLETS PO SCH (10:28)
[2021-08-11] MEDS: metoPROLOL SUCCINATE 25 MG TAB.SR.24H (FP) PO SCH (10:28)
[2021-08-11] MEDS: DEXAMETHASONE SOD PHOSPHATE 4 MG/1 ML VIAL IVPUSH SCH (10:28)
[2021-08-11] MEDS: POLYETHYLENE GLYCOL (HEALTHYLAX) 3350 17 GM PACKET PO SCH (10:28)
[2021-08-11] MEDS: PANTOPRAZOLE 40 MG TABLET PO SCH (10:28)
[2021-08-11] MEDS: APIXABAN 5 MG TABLET PO SCH ×2 (10:28→21:11)
[2021-08-11] MEDS: LOSARTAN POTASSIUM 50 MG TABLET PO SCH (10:29)
[2021-08-11] MEDS: TIOTROPIUM BROMIDE 2.5 MCG (SPIRIVA) RESPIMAT INHALER IH SCH (10:29)
[2021-08-11] MEDS: CHOLECALCIFEROL (VIT D3) 5000 UNITS (125 MCG) CAP PO SCH (10:29)
[2021-08-11] MEDS: BUDESONIDE/FORMETEROL FUMARATE 160/4.5 mcg INHALER IH SCH ×2 (10:29→21:11)
[2021-08-12] MEDS ORDERED: cefTRIAXone SODIUM 1 GM VIAL ONE (10:41)
[2021-08-12] MEDS ORDERED: DEXTROSE 5%-WATER - 50 ML IVPB ONE (10:41)
[2021-08-12] MEDS: ZINC SULFATE 220 MG CAPSULE (FP) PO SCH (11:01)
[2021-08-12] MEDS: PANTOPRAZOLE 40 MG TABLET PO SCH (11:01)
[2021-08-12] MEDS: ALBUTEROL SO4 HFA INHALER IH SCH ×4 (11:01→22:23)
[2021-08-12] MEDS: ASCORBIC ACID 500 MG TABLET (FP) PO SCH ×2 (11:02→22:24)
[2021-08-12] MEDS: LOSARTAN POTASSIUM 50 MG TABLET PO SCH (11:02)
[2021-08-12] MEDS: DEXAMETHASONE SOD PHOSPHATE 4 MG/1 ML VIAL IVPUSH SCH (11:02)
[2021-08-12] MEDS: POLYETHYLENE GLYCOL (HEALTHYLAX) 3350 17 GM PACKET PO SCH (11:02)
[2021-08-12] MEDS: ASPIRIN 81 MG CHEWABLE TABLETS PO SCH (11:02)
[2021-08-12] MEDS: APIXABAN 5 MG TABLET PO SCH ×2 (11:02→22:24)
[2021-08-12] MEDS: CEFTRIAXONE 1 GM in DEXTROSE 5%-WATER - 50 ML IVPB SCH (11:02)
[2021-08-12] MEDS: amLODIPine BESYLATE 5 MG TABLET (FP) PO SCH (11:02)
[2021-08-12] MEDS: metoPROLOL SUCCINATE 25 MG TAB.SR.24H (FP) PO SCH (11:02)
[2021-08-12] MEDS: CHOLECALCIFEROL (VIT D3) 5000 UNITS (125 MCG) CAP PO SCH (11:03)
[2021-08-12] MEDS: BUDESONIDE/FORMETEROL FUMARATE 160/4.5 mcg INHALER IH SCH ×2 (11:03→22:24)
[2021-08-12] MEDS: TIOTROPIUM BROMIDE 2.5 MCG (SPIRIVA) RESPIMAT INHALER IH SCH (11:03)
[2021-08-13] MEDS ORDERED: cefTRIAXone SODIUM 1 GM VIAL ONE (09:52)
[2021-08-13] MEDS ORDERED: DEXTROSE 5%-WATER - 50 ML IVPB ONE (09:52)
[2021-08-13] MEDS: ALBUTEROL SO4 HFA INHALER IH SCH ×4 (10:00→22:30)
[2021-08-13] MEDS: CEFTRIAXONE 1 GM in DEXTROSE 5%-WATER - 50 ML IVPB SCH (10:00)
[2021-08-13] MEDS: PANTOPRAZOLE 40 MG TABLET PO SCH (10:01)
[2021-08-13] MEDS: CHOLECALCIFEROL (VIT D3) 5000 UNITS (125 MCG) CAP PO SCH (10:01)
[2021-08-13] MEDS: POLYETHYLENE GLYCOL (HEALTHYLAX) 3350 17 GM PACKET PO SCH ×2 (10:01→10:20)
[2021-08-13] MEDS: APIXABAN 5 MG TABLET PO SCH ×2 (10:01→22:30)
[2021-08-13] MEDS: ASCORBIC ACID 500 MG TABLET (FP) PO SCH ×2 (10:01→22:30)
[2021-08-13] MEDS: metoPROLOL SUCCINATE 25 MG TAB.SR.24H (FP) PO SCH (10:01)
[2021-08-13] MEDS: ASPIRIN 81 MG CHEWABLE TABLETS PO SCH (10:01)
[2021-08-13] MEDS: LOSARTAN POTASSIUM 50 MG TABLET PO SCH (10:02)
[2021-08-13] MEDS: DEXAMETHASONE SOD PHOSPHATE 4 MG/1 ML VIAL IVPUSH SCH (10:02)
[2021-08-13] MEDS: amLODIPine BESYLATE 5 MG TABLET (FP) PO SCH (10:02)
[2021-08-13] MEDS: ZINC SULFATE 220 MG CAPSULE (FP) PO SCH (10:02)
[2021-08-13] MEDS: BUDESONIDE/FORMETEROL FUMARATE 160/4.5 mcg INHALER IH SCH ×2 (10:03→22:30)
[2021-08-13] MEDS: TIOTROPIUM BROMIDE 2.5 MCG (SPIRIVA) RESPIMAT INHALER IH SCH (10:03)
[2021-08-14 06:46] VITALS: TEMP 98.3
[2021-08-14] MEDS: ALBUTEROL SO4 HFA INHALER IH SCH ×2 (08:41→11:32)
[2021-08-14 09:08] LABS: HEMATOCRIT 39.2 % (35.4-49); HEMOGLOBIN 12.5 GM/dL (11.7-16.9); MCH 27.9 pg (25.7-33.7); MEAN CELL VOLUME 87.2 fl (80-96); MEAN PLT VOLUME 8.3 fl (7.5-11.1); PLATELET COUNT 599 10^3/uL (134-434); RBC 4.49 M/mm3 (4.00-5.60); RDW 14.5 % (11.9-15.9); WHITE BLOOD COUNT 11.1 K/mm3 (4.0-10.0)
[2021-08-14 09:30] LABS: CALCIUM 9.2 mg/dL (8.5-10.1)
[2021-08-14 09:31] LABS: ALBUMIN 2.7 g/dl (3.4-5.0); BLOOD UREA NITROGEN 28.2 mg/dL (7-18)
[2021-08-14 09:36] LABS: BILIRUBIN,TOTAL 0.5 mg/dL (0.2-1)
[2021-08-14] MEDS ORDERED: DEXTROSE 5%-WATER - 50 ML IVPB ONE (10:22)
[2021-08-14] MEDS ORDERED: cefTRIAXone SODIUM 1 GM VIAL ONE (10:22)
[2021-08-14] MEDS: metoPROLOL SUCCINATE 25 MG TAB.SR.24H (FP) PO SCH (10:27)
[2021-08-14] MEDS: PANTOPRAZOLE 40 MG TABLET PO SCH (10:27)
[2021-08-14] MEDS: LOSARTAN POTASSIUM 50 MG TABLET PO SCH (10:27)
[2021-08-14] MEDS: ASPIRIN 81 MG CHEWABLE TABLETS PO SCH (10:27)
[2021-08-14] MEDS: CHOLECALCIFEROL (VIT D3) 5000 UNITS (125 MCG) CAP PO SCH (10:27)
[2021-08-14] MEDS: ASCORBIC ACID 500 MG TABLET (FP) PO SCH (10:27)
[2021-08-14] MEDS: POLYETHYLENE GLYCOL (HEALTHYLAX) 3350 17 GM PACKET PO SCH (10:28)
[2021-08-14] MEDS: ZINC SULFATE 220 MG CAPSULE (FP) PO SCH (10:28)
[2021-08-14] MEDS: amLODIPine BESYLATE 5 MG TABLET (FP) PO SCH (10:28)
[2021-08-14] MEDS: APIXABAN 5 MG TABLET PO SCH (10:28)
[2021-08-14] MEDS: DEXAMETHASONE SOD PHOSPHATE 4 MG/1 ML VIAL IVPUSH SCH (10:28)
[2021-08-14] MEDS: CEFTRIAXONE 1 GM in DEXTROSE 5%-WATER - 50 ML IVPB SCH (10:29)
[2021-08-14] MEDS: BUDESONIDE/FORMETEROL FUMARATE 160/4.5 mcg INHALER IH SCH (10:29)
[2021-08-14 10:38] LABS: ANISOCYTOSIS 0; HELMET CELLS 0; HOWELL-JOLLY BODIES 0; MACROCYTOSIS 0; OVALOCYTE 0; PLATELET ESTIMATE INCREASED; ROULEAU 0; SICKELED CELLS 0; TARGET CELLS 0; TEAR DROP CELLS 0; TOXIC GRANULATION 0
[2021-08-14] MEDS: TIOTROPIUM BROMIDE 2.5 MCG (SPIRIVA) RESPIMAT INHALER IH SCH (11:32)
[2021-08-14 11:43] VITALS: PULSE 99
[2021-08-14 11:44] VITALS: BP 136/74
== END 2021-08-14 14:08 | disposition home or self-care (01) | DRG 177 ==
LOC: JER 13:43 → JERBED 18:08 → J5S 22:58
PROVIDERS: ADMIT Internal Medicine; ATTEND Internal Medicine
PROC: XW033E5 Introduction of Remdesivir Anti-infective into Peripheral Vein, Percutaneous Approach, New Technology Group 5 (ICD-10-PCS; principal; 2021-08-04)
PROC: 3E0333Z Introduction of Anti-inflammatory into Peripheral Vein, Percutaneous Approach (ICD-10-PCS; 2021-08-04)
DX: U07.1 COVID-19 (principal); J12.82 Pneumonia due to coronavirus disease 2019; J96.21 Acute and chronic respiratory failure with hypoxia; I10 Essential (primary) hypertension; E78.5 Hyperlipidemia, unspecified; K21.9 Gastro-esophageal reflux disease without esophagitis; F17.200 Nicotine dependence, unspecified, uncomplicated; I25.10 Atherosclerotic heart disease of native coronary artery without angina pectoris; G47.33 Obstructive sleep apnea (adult) (pediatric); Z95.5 Presence of coronary angioplasty implant and graft
CPT/HCPCS: 36415; 71045-TC-FY; 80053; 81003; 82248; 82550; 82728; 82803; 83605; 83615; 84484; 85025; 85379; 85610; 85730; 86140; 87040; 87086; 87804; 93005; 93010; 94761; 99285-25; C9399; C9803; J1100; U0003; U0005

== ENCOUNTER 2022-03-20 04:26 | Day surgery (SDC) | payer OTHER ==
[2022-03-16 11:03] VITALS: BMI 28.7
[2022-03-20] MEDS ORDERED: BUPIVACAINE HCL/PF 0.5% (5MG/ML) 10 ML VIAL ONE (07:55)
[2022-03-20] MEDS ORDERED: BUPIVACAINE HCL/PF 0.25% (2.5MG/ML) 10 ML VIAL ONE (07:55)
[2022-03-20] MEDS ORDERED: LIDOCAINE HCL/PF 1% SDV 5ML VIAL ONE (07:55)
[2022-03-20] MEDS ORDERED: DEXAMETHASONE SOD PHOSPHATE 10 MG/1 ML VIAL ONE (07:56)
[2022-03-20 10:58] VITALS: RESP 18
[2022-03-20] MEDS ORDERED: MIDAZOLAM HCL 2 MG/2 ML SINGLE DOSE VIAL ONE (12:26)
[2022-03-20] MEDS ORDERED: ceFAZolin SODIUM 1 GM VIAL IVPB ONE (12:35)
[2022-03-20] MEDS ORDERED: LIDOCAINE HCL 1% PRESERVATIVE FREE - 30ML VIAL IJ ONE (12:51)
[2022-03-20 15:02] VITALS: BP 120/80; PULSE 66; TEMP 98
== END 2022-03-20 14:30 | disposition home or self-care (01) ==
LOC: JASU-SURG 04:26
PROVIDERS: ATTEND Physical Medicine & Rehabilitation
PROC: B01BYZZ Fluoroscopy of Spinal Cord using Other Contrast (ICD-10-PCS; 2022-03-20)
PROC: 4B01XVZ Measurement of Peripheral Nervous Stimulator, External Approach (ICD-10-PCS; 2022-03-20)
PROC: 01HY3MZ Insertion of Neurostimulator Lead into Peripheral Nerve, Percutaneous Approach (ICD-10-PCS; principal; 2022-03-20 12:30)
DX: M48.061 Spinal stenosis, lumbar region without neurogenic claudication (principal); M96.1 Postlaminectomy syndrome, not elsewhere classified; M54.50 Low back pain, unspecified
CPT/HCPCS: 64561; C1778; 76000-TC-FY; J1100

== ENCOUNTER 2024-02-08 04:30 | Day surgery (SDC) | payer OTHER ==
[2024-02-06 12:07] VITALS: BMI 30.7
[2024-02-08] MEDS ORDERED: BUPIVACAINE HCL/PF 0.5% (5MG/ML) 10 ML VIAL ONE (07:40)
[2024-02-08] MEDS ORDERED: MIDAZOLAM HCL 2 MG/2 ML SINGLE DOSE VIAL ONE (07:59)
[2024-02-08] MEDS ORDERED: ROCURONIUM BROMIDE 50 MG/5 ML SYRINGE ONE ×2 (07:59→09:45)
[2024-02-08] MEDS ORDERED: PROPOFOL 40 ML ONE (07:59)
[2024-02-08] MEDS: ceFAZolin SODIUM 1 GM VIAL IVPB ONE (08:30)
[2024-02-08] MEDS: BUPIVACAINE HCL/PF 0.5% (5MG/ML) 10 ML VIAL IJ ONE ×4 (09:02→09:06)
[2024-02-08] MEDS ORDERED: ACETAMINOPHEN INJECTION 100 ML IVPB ONE (09:36)
[2024-02-08] MEDS ORDERED: SUGAMMADEX SODIUM 200 MG/2 ML VIAL ONE (11:27)
[2024-02-08] MEDS ORDERED: ONDANSETRON 4 MG/2 ML VIAL IVPUSH PRN (11:47)
[2024-02-08] MEDS: LACTATED RINGERS SOLUTION 1,000 ML IV SCH (12:00)
[2024-02-08] MEDS ORDERED: ALBUTEROL SO4 0.083% IH SOL 2.5 MG/3 ML VIAL.NEB. NEB ONE (12:12)
[2024-02-08] MEDS: ALBUTEROL SO4 0.083% IH SOL 2.5 MG/3 ML VIAL.NEB. NEB ONE (12:13)
[2024-02-08 13:50] VITALS: RESP 20
[2024-02-08] MEDS ORDERED: oxyCODONE HCL 5 MG TABLET ONE (14:58)
[2024-02-08] MEDS: oxyCODONE HCL 5 MG TABLET PO ONE (15:02)
[2024-02-08 15:28] VITALS: BP 145/61; PULSE 91; TEMP 98.4
== END 2024-02-08 16:00 | disposition home or self-care (01) ==
LOC: JASU-SURG 04:30
PROVIDERS: ATTEND Surgery
PROC: 8E0W4CZ Robotic Assisted Procedure of Trunk Region, Percutaneous Endoscopic Approach (ICD-10-PCS; 2024-02-08)
PROC: 0YU54JZ Supplement Right Inguinal Region with Synthetic Substitute, Percutaneous Endoscopic Approach (ICD-10-PCS; principal; 2024-02-08 08:00)
DX: K40.30 Unilateral inguinal hernia, with obstruction, without gangrene, not specified as recurrent (principal)
CPT/HCPCS: 49650; S2900; 86850; 86900; 86901; 94640; 94760; C1781; J0131